=== PATIENT | female | born 1945 | race Caucasian/White ===

== ENCOUNTER 2016-07-10 12:22 | Inpatient (IN) | payer MEDICARE, OTHER ==
--- NOTE | 2016-07-10 12:41 | EDM.PDOC ---
ED HPI DIZZINESS - General Chief Complaint: Respiratory Problem Stated Complaint: DIZZY Time Seen by Provider: 07/10/16 12:41 Source of Information: Reports: Patient, Old records, RN, RN notes reviewed Exam Limitations: Reports: No limitations - History of Present Illness INITIAL COMMENTS - FREE TEXT/NARRATIVE: Arrives to ER from home by POV with c/o dizziness/lightheadedness that began yesterday but went away, and return today. Pt reports having a bad cough with occ. white or yellow sputum production, wheezing, and progressively worsening shortness of breath. She does not believe that she has had any fevers, but did feel hot and flushed once yesterday. Pt returned home last week from [place], and states she had a bad bronchitis the week before they drove home. Pt states she is a former smoker, and has both COPD and asthma. Timing/Duration: Reports: Week(s): (2-3), Constant, Getting worse Baseline Function: Reports: ambulatory Quality: Reports: lightheaded Severity: severe Improves With: Reports: sitting Worsens With: Reports: activity Context, Dizziness: Reports: recent illness - Related Data Allergies/ADRs: Allergies Allergy/AdvReac Type Severity Reaction Status Date / Time oxycodone Allergy Cannot Verified 07/10/16 14:05 Remember Home Meds: Home Meds FLUoxetine [PROzac] 40 mg PO DAILY 07/12/14 [History] Fluticasone/Salmeterol [Advair 250-50] 1 inh INH DAILY 07/12/14 [History] Tiotropium [Spiriva Handihaler] 1 inh INH DAILY 07/12/14 [History] atorvaSTATin [Lipitor] 40 mg PO DAILY 07/12/14 [History] traZODone 50 mg PO BEDTIME 07/12/14 [History] Aspirin 325 mg PO DAILY 02/16/16 [History] Metoprolol Tartrate [Metoprolol Tartrate] 25 mg PO DAILY 02/16/16 [History] Calcium Carbonate/Vitamin D3 [Caltrate 600 Plus D3 Tablet] 2 tab PO DAILY [History] Cilostazol 100 mg PO BID 07/10/16 [History] Valsartan/Hydrochlorothiazide [Valsartan-Hctz 320-25 mg Tab] 1 oz PO DAILY 07/10 [History] Past Medical History HEENT History: Reports: Impaired vision Cardiovascular History: Reports: CAD, High cholesterol, Hypertension, Stents Respiratory History: Reports: Asthma, COPD Psychiatric History: Reports: Depression - Past Surgical History HEENT Surgical History: Reports: Cataract surgery, Tonsillectomy Cardiovascular Surgical History: Reports: Coronary artery stent Female Surgical History: Reports: Tubal ligation Musculoskeletal Surgical History: Reports: Other (see below) Other Musculoskeletal Surgeries/Procedures:: Rotator cuff (R). Carpal tunnel Oncologic Surgical History: Reports: Lumpectomy Social & Family History - Tobacco Use Smoking Status *Q: Former Smoker Years of Tobacco use: 35 Used Tobacco, but Quit: Yes Month Tobacco Last Used: 1998 Second Hand Smoke Exposure: No - Caffeine Use Caffeine Use: Reports: Coffee - Alcohol Use Days Per Week of Alcohol Use: 0 - Recreational Drug Use Recreational Drug Use: No - Living Situation & Occupation Living situation: Reports: , with spouse Occupation: retired ED ROS GENERAL - Review of Systems Review Of Systems: ROS reveals no pertinent complaints other than HPI. ED EXAM, DIZZINESS - Physical Exam Exam: See Below Exam Limited By: No limitations General Appearance: alert, WD/WN, no apparent distress, anxious Eye Exam: bilateral eye: normal inspection Ears: normal external exam, hearing grossly normal Nose: normal inspection, normal mucosa, no blood Throat/Mouth: Normal inspection, Normal lips, Normal teeth, Normal gums, Normal oropharynx, Normal voice, No airway compromise Head Exam: atraumatic, normocephalic Neck: normal inspection, supple, non-tender, full range of motion Respiratory/Chest: no respiratory distress, no accessory muscle use, decreased breath sounds, rhonchi (Rt lower posterior lung field), wheezing Cardiovascular: normal peripheral pulses, regular rate, rhythm, no edema, no gallop, no JVD, no murmur, no rub GI/Abdominal: normal bowel sounds, soft, non tender, no organomegaly, no distention (Female) Exam: Deferred Rectal (Female) Exam: Deferred Neurological: alert, normal mood/affect, normal dorsiflexion, CN II-XII intact, normal plantar flexion, normal gait, no motor/sensory deficits, oriented x 3 Back Exam: normal inspection, full range of motion, NT Extremities: normal inspection, normal range of motion, non-tender, no pedal edema, normal capillary refill Psychiatric: normal affect, normal mood Skin Exam: Warm, Dry, Intact, Normal color, No rash EKG INTERPRETATION EKG Date: 07/10/16 Time: 12:44 Rhythm: other (SR) Rate (beats/min): 70 Cannon: normal P-wave: present QRS: other (early transition) ST-T: normal QT: normal Comparison: NA - no prior EKG Course - Vital Signs Last Recorded V/S: Last Vital Signs Temp 36.7 C 07/10/16 14:33 Pulse 73 07/10/16 14:33 Resp 20 07/10/16 14:33 BP 123/48 L 07/10/16 14:33 Pulse Ox 100 07/10/16 14:39 - Orders/Labs/Meds Orders: Active Orders 24 hr Category Date Time Status Patient Status [ADT] Routine ADT 07/10/16 14:39 Active Antiembolic Devices [RC] PER UNIT ROUTINE Care 07/10/16 14:41 Active Orthostatic Vital Signs [RC] ASDIRECTED Care 07/10/16 12:53 Active Oxygen Therapy [RC] PRN Care 07/10/16 14:39 Active RT Aerosol Therapy [RC] ASDIRECTED Care 07/10/16 12:53 Active RT Aerosol Therapy [RC] ASDIRECTED Care 07/10/16 14:36 Active RT Aerosol Therapy [RC] ASDIRECTED Care 07/10/16 14:38 Active Up With Assistance [RC] ASDIRECTED Care 07/10/16 14:39 Active VTE/DVT Education [RC] PER UNIT ROUTINE Care 07/10/16 14:39 Active Vital Signs [RC] Q4H Care 07/10/16 14:39 Active Regular Diet [DIET] Diet 07/10/16 Dinner Active BASIC METABOLIC PANEL,BMP [CHEM] AM Lab 07/11/16 05:15 Ordered CBC WITH AUTO DIFF [HEME] AM Lab 07/11/16 05:15 Ordered CULTURE BLOOD [BC] Stat Lab 07/10/16 13:00 Received CULTURE BLOOD [BC] Stat Lab 07/10/16 13:08 Received CULTURE SPUTUM + SMEAR [RM] Stat Lab 07/10/16 12:49 Results UA W/MICROSCOPIC [URIN] Stat Lab 07/10/16 12:50 Uncollected Acetaminophen [Tylenol] Med 07/10/16 14:39 Active 650 mg PO Q4H PRN Albuterol [Proventil Neb Soln] Med 07/10/16 14:37 Active 2.5 mg NEB Q4HRRT PRN Albuterol/Ipratropium [DuoNeb 3.0-0.5 MG/3 ML] Med 07/10/16 15:00 Active 3 ml NEB Q8HRRT Aspirin Med 07/11/16 09:00 Active 325 mg PO DAILY Budesonide [Pulmicort] Med 07/10/16 18:00 Active 0.5 mg NEB BIDRT Calcium Carbonate/Vitamin D3 [Calcium Carbonate/Vitamin Med 07/11/16 09:00 Active D 1250 MG-200 Unit] 2 tab PO DAILY Cilostazol [Cilostazol] Med 07/10/16 21:00 Pending 100 mg PO BID Docusate Sodium [Colace] Med 07/10/16 14:39 Active 100 mg PO BID PRN FLUoxetine [PROzac] Med 07/11/16 09:00 Active 40 mg PO DAILY Heparin Sodium Med 07/10/16 22:00 Active 5,000 units SUBCUT Q8HR Hydrochlorothiazide Med 07/11/16 09:00 Active 25 mg PO DAILY Ketorolac [Toradol] Med 07/10/16 14:39 Active 15 mg IVPUSH Q6H PRN Levofloxacin/Dextrose 5%-Water [Levaquin in D5W 250 MG/ Med 07/11/16 08:00 Ordered 50 ML] 250 mg IV Q24H Metoprolol Tartrate [Lopressor] Med 07/11/16 09:00 Active 12.5 mg PO DAILY Ondansetron [Zofran ODT] Med 07/10/16 14:39 Active 4 mg PO Q6H PRN Sodium Chloride 0.9% [Saline Flush] Med 07/10/16 12:50 Active 10 ml FLUSH ASDIRECTED PRN Tiotropium [Spiriva HandiHaler] Med 07/11/16 09:00 Active 18 mcg INH DAILY Valsartan [Diovan] Med 07/11/16 09:00 Active 320 mg PO DAILY atorvaSTATin [Lipitor] Med 07/11/16 09:00 Active 40 mg PO DAILY guaiFENesin [Robitussin] Med 07/10/16 14:38 Active 100 mg PO Q6H PRN methylPREDNISolone Sod Succ [Solu-MEDROL] Med 07/10/16 22:00 Active 40 mg IVPUSH Q8HR traZODone Med 07/10/16 21:00 Active 50 mg PO BEDTIME Antiembolic Hose [OM.PC] Per Unit Routine Oth 07/10/16 14:40 Ordered Blood Culture x2 Reflex Set [OM.PC] Stat Oth 07/10/16 12:50 Ordered Peripheral IV Insertion Adult [OM.PC] Stat Oth 07/10/16 12:50 Ordered Saline Lock Insert [OM.PC] Routine Oth 07/10/16 14:39 Ordered Resuscitation Status Routine Resus Stat 07/10/16 14:39 Ordered Medication Orders Acetaminophen (Tylenol) 650 mg PO Q4H PRN PRN Reason: Pain (Mild 1-3)/fever Albuterol (Proventil Neb Soln) 2.5 mg NEB Q4HRRT PRN PRN Reason: sob Albuterol/Ipratropium (Duoneb 3.0-0.5 Mg/3 Ml) 3 ml NEB Q8HRRT [facility] Aspirin (Aspirin) 325 mg PO DAILY [facility] Atorvastatin Calcium (Lipitor) 40 mg PO DAILY [facility] Budesonide (Pulmicort) 0.5 mg NEB BIDRT [facility] Calcium Carbonate (Calcium Carbonate/Vitamin D 1250 Mg-200 Unit) 2 tab PO DAILY [facility] Docusate Sodium (Colace) 100 mg PO BID PRN PRN Reason: Constipation Fluoxetine HCl (Prozac) 40 mg PO DAILY [facility] Guaifenesin (Robitussin) 100 mg PO Q6H PRN PRN Reason: Cough Heparin Sodium (Porcine) (Heparin Sodium) 5,000 units SUBCUT Q8HR [facility] Hydrochlorothiazide (Hydrochlorothiazide) 25 mg PO DAILY [facility] Ketorolac Tromethamine (Toradol) 15 mg IVPUSH Q6H PRN PRN Reason: Pain (moderate 4-6) Levofloxacin/Dextrose (Levaquin In D5w 250 Mg/50 Ml) 250 mg IV Q24H [facility] Methylprednisolone Sodium Succinate (Solu-Medrol) 40 mg IVPUSH Q8HR [facility] Metoprolol Tartrate (Lopressor) 12.5 mg PO DAILY [facility] Non-Formulary Medication (Cilostazol [Cilostazol]) 100 mg PO BID [facility] Ondansetron HCl (Zofran Odt) 4 mg PO Q6H PRN PRN Reason: nausea, able to take PO Sodium Chloride (Saline Flush) 10 ml FLUSH ASDIRECTED PRN PRN Reason: Keep Vein Open Last Admin: 07/10/16 13:21 Dose: 10 ml Tiotropium [place] (Spiriva Handihaler) 18 mcg INH DAILY [facility] Trazodone HCl (Trazodone) 50 mg PO BEDTIME [facility] Valsartan (Diovan) 320 mg PO DAILY [facility] Labs: Laboratory Tests 07/10/16 07/10/16 07/10/16 Range/Units 13:00 13:08 13:08 WBC 8.9 (5.0-10.0) 10^3/uL RBC 4.14 L (4.2-5.4) 10^6/uL Hgb 12.9 (12.0-16.0) g/dL Hct 38.2 (37.0-47.0) % MCV 92.3 (80-100) fL MCH 31.2 (27.0-34.0) pg MCHC 33.8 (33.0-35.0) g/dL Plt Count 234 (150-450) 10^3/uL Neut % (Auto) 69.9 (42.2-75.2) % Lymph % (Auto) 21.7 (20.5-50.1) % Graham % (Auto) 6.7 (2-8) % Eos % (Auto) 1.6 (1.0-3.0) % Baso % (Auto) 0.1 (0.0-1.0) % D-Dimer, Quantitative 662 H (0-400) ng/mL Sodium (135-145) mmol/L Potassium (3.6-5.0) mmol/L Chloride (101-111) mmol/L Carbon Dioxide (21.0-31.0) mmol/L Anion Gap BUN (7-18) mg/dL Creatinine (0.6-1.3) mg/dL Est Cr Clr Drug Dosing Estimated GFR (MDRD) BUN/Creatinine Ratio Glucose (74-105) mg/dL Lactic Acid 1.1 (0.5-2.2) mmol/L Calcium (8.4-10.2) mg/dl Total Bilirubin (0.2-1.0) mg/dL AST (10-42) IU/L ALT (10-60) IU/L Alkaline Phosphatase (42-121) IU/L Troponin I (0.00-0.08) ng/mL B-Natriuretic Peptide (0-100) pg/ml Total Protein (6.7-8.2) g/dl Albumin (3.2-5.5) g/dl Globulin Albumin/Globulin Ratio // Range/Units 13:08 WBC (5.0-10.0) 10^3/uL RBC (4.2-5.4) 10^6/uL Hgb (12.0-16.0) g/dL Hct (37.0-47.0) % MCV (80-100) fL MCH (27.0-34.0) pg MCHC (33.0-35.0) g/dL Plt Count (150-450) 10^3/uL Neut % (Auto) (42.2-75.2) % Lymph % (Auto) (20.5-50.1) % Graham % (Auto) (2-8) % Eos % (Auto) (1.0-3.0) % Baso % (Auto) (0.0-1.0) % D-Dimer, Quantitative (0-400) ng/mL Sodium 138 (135-145) mmol/L Potassium 3.8 (3.6-5.0) mmol/L Chloride 101 (101-111) mmol/L Carbon Dioxide 26.0 (21.0-31.0) mmol/L Anion Gap 14.8 BUN 34 H (7-18) mg/dL Creatinine 1.5 H (0.6-1.3) mg/dL Est Cr Clr Drug Dosing TNP Estimated GFR (MDRD) 34 BUN/Creatinine Ratio 22.66 Glucose 117 H (74-105) mg/dL Lactic Acid (0.5-2.2) mmol/L Calcium 9.6 (8.4-10.2) mg/dl Total Bilirubin 0.8 (0.2-1.0) mg/dL AST 21 (10-42) IU/L ALT 25 (10-60) IU/L Alkaline Phosphatase 53 (42-121) IU/L Troponin I 0.00 (0.00-0.08) ng/mL B-Natriuretic Peptide 17 (0-100) pg/ml Total Protein 7.1 (6.7-8.2) g/dl Albumin 4.0 (3.2-5.5) g/dl Globulin 3.1 Albumin/Globulin Ratio 1.29 Meds: Medications Generic Name Dose Route Start Last Admin Trade Name Freq PRN Reason Stop Dose Admin Acetaminophen 650 mg 07/10/16 14:39 Tylenol PO Q4H PRN Pain (Mild 1-3)/fever Albuterol 2.5 mg 07/10/16 14:37 Proventil Neb Soln NEB Q4HRRT PRN sob Albuterol/Ipratropium 3 ml 07/10/16 15:00 Duoneb 3.0-0.5 Mg/3 Ml NEB Q8HRRT [facility] Aspirin 325 mg 07/11/16 09:00 Aspirin PO DAILY [facility] Atorvastatin Calcium 40 mg 07/11/16 09:00 Lipitor PO DAILY [facility] Budesonide 0.5 mg 07/10/16 18:00 Pulmicort NEB BIDRT [facility] Calcium Carbonate 2 tab 07/11/16 09:00 Calcium Carbonate/Vitamin D 1250 Mg-200 Unit PO DAILY [facility] Docusate Sodium 100 mg 07/10/16 14:39 Colace PO BID PRN Constipation Fluoxetine HCl 40 mg 07/11/16 09:00 Prozac PO DAILY [facility] Guaifenesin 100 mg 07/10/16 14:38 Robitussin PO Q6H PRN Cough Heparin Sodium (Porcine) 5,000 units 07/10/16 22:00 Heparin Sodium SUBCUT Q8HR [facility] Hydrochlorothiazide 25 mg 07/11/16 09:00 Hydrochlorothiazide PO DAILY [facility] Ketorolac Tromethamine 15 mg 07/10/16 14:39 Toradol IVPUSH Q6H PRN Pain (moderate 4-6) Levofloxacin/Dextrose 250 mg 07/11/16 08:00 Levaquin In D5w 250 Mg/50 Ml IV Q24H [facility] Methylprednisolone Sodium Succinate 40 mg 07/10/16 22:00 Solu-Medrol IVPUSH Q8HR [facility] Metoprolol Tartrate 12.5 mg 07/11/16 09:00 Lopressor PO DAILY [facility] Non-Formulary Medication 100 mg 07/10/16 21:00 Cilostazol [Cilostazol] PO BID [facility] Ondansetron HCl 4 mg 07/10/16 14:39 Zofran Odt PO Q6H PRN nausea, able to take PO Sodium Chloride 10 ml 07/10/16 12:50 07/10/16 13:21 Saline Flush FLUSH 10 ml ASDIRECTED PRN Administration Keep Vein Open Tiotropium [place] 18 mcg 07/11/16 09:00 Spiriva Handihaler INH DAILY [facility] Trazodone HCl 50 mg 07/10/16 21:00 Trazodone PO BEDTIME [facility] Valsartan 320 mg 07/11/16 09:00 Diovan PO DAILY [facility] Discontinued Medications Generic Name Dose Route Start Last Admin Trade Name Freq PRN Reason Stop Dose Admin Albuterol/Ipratropium 3 ml 07/10/16 12:53 07/10/16 13:14 Duoneb 3.0-0.5 Mg/3 Ml NEB 07/10/16 12:54 3 ml ONETIME ONE Administration Sodium Chloride 1,000 mls @ 999 mls/hr 07/10/16 12:53 07/10/16 13:21 Normal Saline IV 07/10/16 13:53 999 mls/hr .BOLUS ONE Administration Levofloxacin/Dextrose 500 mg/ 100 mls @ 100 mls/hr 07/10/16 13:53 07/10/16 14 :18 Premix IV 07/10/16 14:52 100 mls/hr ONETIME ONE Administration Levofloxacin/Dextrose 500 mg/ 100 mls @ 100 mls/hr 07/11/16 08:00 Premix IV Q24H [facility] Ketorolac Tromethamine 30 mg 07/10/16 13:39 07/10/16 13:48 Toradol IVPUSH 07/10/16 13:40 30 mg ONETIME ONE Administration Lorazepam 0.5 mg 07/10/16 13:39 07/10/16 13:47 Ativan IVPUSH 07/10/16 13:40 0.5 mg ONETIME ONE Administration Methylprednisolone Sodium Succinate 125 mg 07/10/16 12:53 07/10/16 13:21 Solu-Medrol IVPUSH 07/10/16 12:54 125 mg ONETIME ONE Administration - Radiology Interpretation Free Text/Narrative:: CXR: Rt medial base infiltrate; see Rad. report. - Re-Assessments/Exams Free Text/Narrative Re-Assessment/Exam: 07/10/16 14:06 I explained the exam findings, results of all diagnostic tests, working diagnosis, and any potential or additionally considered diagnoses, treatment/ disposition plan, self/home care instructions, rational for the diagnosis/ treatment plan/disposition plan, anticipated course of illness, and follow up instructions to the pt and/or pts family or guardian. The pt and/or pts family or guardian acknowledges understanding of the above explanation(s), and of the signs and symptoms which should prompt the return of the pt to the ER should those or any other concerning symptoms develop. Departure - Departure Time of Disposition: 14:06 (admit to Dr. Head) Disposition: Admitted As Inpatient 64 Condition: serious Clinical Impression: Acute exacerbation of chronic obstructive pulmonary disease (COPD), Anxiety, Lightheadedness, Generalized headache Pneumonia Qualifiers: Pneumonia type: due to unspecified organism Laterality: right Lung location: lower lobe of lung Qualified Code(s): J18.1 - Lobar pneumonia, unspecified organism Forms: ED Department Discharge - My Orders Last 24 Hours: My Active Orders 07/10/16 12:49 CULTURE SPUTUM + SMEAR [RM] Stat 07/10/16 12:50 UA W/MICROSCOPIC [URIN] Stat Sodium Chloride 0.9% [Saline Flush] 10 ml FLUSH ASDIRECTED PRN Blood Culture x2 Reflex Set [OM.PC] Stat Peripheral IV Insertion Adult [OM.PC] Stat 07/10/16 12:53 Orthostatic Vital Signs [RC] ASDIRECTED RT Aerosol Therapy [RC] ASDIRECTED 07/10/16 13:00 CULTURE BLOOD [BC] Stat 07/10/16 13:08 CULTURE BLOOD [BC] Stat - Assessment/Plan Last 24 Hours: My Active Orders 07/10/16 12:49 CULTURE SPUTUM + SMEAR [RM] Stat 07/10/16 12:50 UA W/MICROSCOPIC [URIN] Stat Sodium Chloride 0.9% [Saline Flush] 10 ml FLUSH ASDIRECTED PRN Blood Culture x2 Reflex Set [OM.PC] Stat Peripheral IV Insertion Adult [OM.PC] Stat 07/10/16 12:53 Orthostatic Vital Signs [RC] ASDIRECTED RT Aerosol Therapy [RC] ASDIRECTED 07/10/16 13:00 CULTURE BLOOD [BC] Stat 07/10/16 13:08 CULTURE BLOOD [BC] Stat
[2016-07-10] MEDS ORDERED: Sodium Chloride 0.9% 1,000 ML IV ONE (12:53)
[2016-07-10] MEDS ORDERED: Albuterol/Ipratropium 3.0-0.5 MG/3 ML Neb Soln NEB ONE (12:53)
[2016-07-10] MEDS ORDERED: methylPREDNISolone Sodium Succinate 125 MG/2 ML SDV IVPUSH ONE (12:53)
[2016-07-10] MEDS: Sodium Chloride 0.9% 10 ML Syringe FLUSH PRN (13:21)
[2016-07-10 13:38] LABS: CHLORIDE,CL 101 mmol/L (101-111); SODIUM,NA 138 mmol/L (135-145)
[2016-07-10] MEDS ORDERED: Ketorolac 30 MG/ML SDV IVPUSH ONE (13:39)
[2016-07-10] MEDS ORDERED: LORazepam 2 MG/ML Syringe IVPUSH ONE (13:39)
[2016-07-10] MEDS: Levofloxacin/Dextrose 5%-Water 500 MG in Premix Bag 1 BAG IV ONE ×2 (14:18→15:08)
[2016-07-10] MEDS ORDERED: Albuterol 0.083% 2.5 MG/3 ML Neb Soln NEB PRN (14:37)
[2016-07-10] MEDS ORDERED: guaiFENesin 100 MG/5 ML Soln 5 ML UD Cup PO PRN (14:38)
[2016-07-10] MEDS ORDERED: Docusate Sodium 100 MG Cap PO PRN (14:39)
[2016-07-10] MEDS ORDERED: Ketorolac 30 MG/ML SDV IVPUSH PRN (14:39)
[2016-07-10] MEDS ORDERED: Ondansetron 4 MG Tab.DIS PO PRN (14:39)
--- NOTE | 2016-07-10 15:09 | PCM.HP ---
H&P History of Present Illness - General Date of Service: 07/10/16 Admit Problem/Dx: Admission Diagnosis/Problem Admission Diagnosis/Problem Cough - History of Present Illness Initial Comments - Free Text/Narative: the patient is a 71-year-old lady with a history of coronary artery disease, COPD, hypertension The patient developed a cough about one week ago SHe was given prednisone for COPD exacerbation Today she felt increasing shortness of breath, cough with green sputum No apparent sick contact, no associated fever Today he felt somewhat dizzy after working in the garden She noted to be wheezy, Onset of Symptoms: Reports: gradual Head Pain Score (Numeric/FACES): 2 - Related Data Allergies/Adverse Reactions: Allergies Allergy/AdvReac Type Severity Reaction Status Date / Time oxycodone Allergy Cannot Verified 07/10/16 14:05 Remember Home Medications: Home Meds FLUoxetine [PROzac] 40 mg PO DAILY 07/12/14 [History] Fluticasone/Salmeterol [Advair 250-50] 1 inh INH DAILY 07/12/14 [History] Tiotropium [Spiriva Handihaler] 1 inh INH DAILY 07/12/14 [History] atorvaSTATin [Lipitor] 40 mg PO DAILY 07/12/14 [History] traZODone 50 mg PO BEDTIME 07/12/14 [History] Aspirin 325 mg PO DAILY 02/16/16 [History] Metoprolol Tartrate [Metoprolol Tartrate] 12.5 mg PO DAILY 02/16/16 [History] Calcium Carbonate/Vitamin D3 [Caltrate 600 Plus D3 Tablet] 2 tab PO DAILY [History] Cilostazol 100 mg PO BID 07/10/16 [History] Valsartan/Hydrochlorothiazide [Valsartan-Hctz 320-25 mg Tab] 1 oz PO DAILY 07/10 [History] Past Medical History HEENT History: Reports: Cataract, Impaired vision Cardiovascular History: Reports: CAD, High cholesterol, Hypertension, Stents Respiratory History: Reports: COPD, Pneumonia, recurrent Psychiatric History: Reports: Anxiety, Depression - Past Surgical History HEENT Surgical History: Reports: Cataract surgery, Tonsillectomy Cardiovascular Surgical History: Reports: Coronary artery stent Female Surgical History: Reports: Tubal ligation Musculoskeletal Surgical History: Reports: Other (see below) Other Musculoskeletal Surgeries/Procedures:: Rotator cuff (R). Carpal tunnel Oncologic Surgical History: Reports: Biopsy of breast, Lumpectomy Social & Family History - Tobacco Use Smoking Status *Q: Former Smoker Years of Tobacco use: 35 Packs/Tins Daily: 1.5 Used Tobacco, but Quit: Yes Month Tobacco Last Used: 12 Second Hand Smoke Exposure: No - Caffeine Use Caffeine Use: Reports: Coffee - Alcohol Use Days Per Week of Alcohol Use: 0 - Recreational Drug Use Recreational Drug Use: No - Living Situation & Occupation Living situation: Reports: , with spouse Occupation: retired H&P Review of Systems - Review of Systems: Review Of Systems: See Below General: Reports: chills, weakness. Denies: fever Pulmonary: Reports: Shortness of Breath, Wheezing Cardiovascular: Denies: chest pain Gastrointestinal: Denies: Abdominal pain Genitourinary: Denies: dysuria Psychiatric: Denies: confusion Neurological: Reports: Dizziness Exam - Exam Exam: See Below - Vital Signs Vital Signs: Last Vital Signs Temp 36.7 C 07/10/16 14:33 Pulse 73 07/10/16 14:33 Resp 20 07/10/16 14:33 BP 123/48 L 07/10/16 14:33 Pulse Ox 100 07/10/16 14:39 Weight: 89.993 kg - Exam Quality Assessment: supplemental oxygen General: alert, oriented HEENT: Conjunctiva clear, EOMI Neck: supple, trachea midline Lungs: Normal respiratory effort, Wheezing Cardiovascular: regular rate, regular rhythm Abdomen: normal bowel sounds, soft Extremities: normal inspection. No: edema Skin: warm, dry, intact Neuro Extensive - Mental Status: alert, oriented x3, normal mood/affect, normal cognition Psychiatric: alert, normal affect, normal mood - Patient Data Result Diagrams: 07/10/16 13:08 07/10/16 13:08 Imaging Impressions last 24 hrs: EKG per my reading shows right basilar linear opacity, competible with bronchitis or pneumonia *Q Meaningful Use (ADM) - VTE *Q VTE Criteria *Q: - Stroke *Q Stroke Criteria *Q: - AMI *Q AMI Criteria *Q: - Problem List (1) Acute exacerbation of chronic obstructive pulmonary disease (COPD) SNOMED Code(s): 201411295 ICD Code: J44.1 - CHRONIC OBSTRUCTIVE PULMONARY DISEASE W (ACUTE) EXACERBATION Status: Acute Current Visit: Yes (2) Anxiety SNOMED Code(s): 28977622 ICD Code: F41.9 - ANXIETY DISORDER, UNSPECIFIED Status: Acute Current Visit: Yes (3) Pneumonia SNOMED Code(s): 044186858 ICD Code: J18.9 - PNEUMONIA, UNSPECIFIED ORGANISM Status: Acute Current Visit: Yes Qualifiers: Pneumonia type: due to unspecified organism Laterality: right Lung location: lower lobe of lung Qualified Code(s): J18.1 - Lobar pneumonia, unspecified organism Problem List Initiated/Reviewed/Updated: Yes Orders Last 24hrs: Active Orders 24 hr Category Date Time Status Patient Status [ADT] Routine ADT 07/10/16 14:39 Ordered Antiembolic Devices [RC] PER UNIT ROUTINE Care 07/10/16 14:41 Ordered Oxygen Therapy [RC] PRN Care 07/10/16 14:39 Ordered RT Aerosol Therapy [RC] ASDIRECTED Care 07/10/16 14:36 Ordered RT Aerosol Therapy [RC] ASDIRECTED Care 07/10/16 14:38 Ordered Up With Assistance [RC] ASDIRECTED Care 07/10/16 14:39 Ordered VTE/DVT Education [RC] PER UNIT ROUTINE Care 07/10/16 14:39 Ordered Vital Signs [RC] Q4H Care 07/10/16 14:39 Ordered Regular Diet [DIET] Diet 07/10/16 Dinner Ordered BASIC METABOLIC PANEL,BMP [CHEM] AM Lab 07/11/16 05:15 Ordered CBC WITH AUTO DIFF [HEME] AM Lab 07/11/16 05:15 Ordered Acetaminophen [Tylenol] Med 07/10/16 14:39 Ordered 650 mg PO Q4H PRN Albuterol [Proventil Neb Soln] Med 07/10/16 14:37 Ordered 2.5 mg NEB Q4HRRT PRN Albuterol/Ipratropium [DuoNeb 3.0-0.5 MG/3 ML] Med 07/10/16 15:00 Ordered 3 ml NEB Q8HRRT Aspirin Med 07/11/16 09:00 Ordered 325 mg PO DAILY Budesonide [Pulmicort] Med 07/10/16 18:00 Ordered 0.5 mg NEB BIDRT Calcium Carbonate/Vitamin D3 [Caltrate 600 Plus D3 Med 07/11/16 09:00 Ordered Tablet] 2 tab PO DAILY Cilostazol [Cilostazol] Med 07/10/16 21:00 Ordered 100 mg PO BID Docusate Sodium [Colace] Med 07/10/16 14:39 Ordered 100 mg PO BID PRN FLUoxetine [PROzac] Med 07/11/16 09:00 Ordered 40 mg PO DAILY Heparin Sodium Med 07/10/16 22:00 Ordered 5,000 units SUBCUT Q8HR Hydrochlorothiazide Med 07/11/16 09:00 Active 25 mg PO DAILY Ketorolac [Toradol] Med 07/10/16 14:39 Ordered 15 mg IVPUSH Q6H PRN Levofloxacin/Dextrose 5%-Water [Levaquin in D5W 250 MG/ Med 07/11/16 08:00 Ordered 50 ML] 250 mg IV Q24H Metoprolol Tartrate [Lopressor] Med 07/11/16 09:00 Ordered 12.5 mg PO DAILY Ondansetron [Zofran ODT] Med 07/10/16 14:39 Ordered 4 mg PO Q6H PRN Tiotropium [Spiriva HandiHaler] Med 07/11/16 09:00 Ordered 1 inh INH DAILY Valsartan/Hydrochlorothiazide [Valsartan-Hctz 320-25 mg Med 07/11/16 09:00 Ordered Tab] 1 oz PO DAILY atorvaSTATin [Lipitor] Med 07/11/16 09:00 Ordered 40 mg PO DAILY guaiFENesin [Robitussin] Med 07/10/16 14:38 Ordered 100 mg PO Q6H PRN methylPREDNISolone Sod Succ [Solu-MEDROL] Med 07/10/16 18:00 Ordered 40 mg IVPUSH Q8H traZODone Med 07/10/16 21:00 Ordered 50 mg PO BEDTIME Antiembolic Hose [OM.PC] Per Unit Routine Oth 07/10/16 14:40 Ordered Saline Lock Insert [OM.PC] Routine Oth 07/10/16 14:39 Ordered Resuscitation Status Routine Resus Stat 07/10/16 14:39 Ordered Medication Orders Acetaminophen (Tylenol) 650 mg PO Q4H PRN PRN Reason: Pain (Mild 1-3)/fever Albuterol (Proventil Neb Soln) 2.5 mg NEB Q4HRRT PRN PRN Reason: sob Albuterol/Ipratropium (Duoneb 3.0-0.5 Mg/3 Ml) 3 ml NEB Q8HRRT [facility] Aspirin (Aspirin) 325 mg PO DAILY [facility] Atorvastatin Calcium (Lipitor) 40 mg PO DAILY [facility] Budesonide (Pulmicort) 0.5 mg NEB BIDRT [facility] Calcium Carbonate (Calcium Carbonate/Vitamin D 1250 Mg-200 Unit) 2 tab PO DAILY [facility] Docusate Sodium (Colace) 100 mg PO BID PRN PRN Reason: Constipation Fluoxetine HCl (Prozac) 40 mg PO DAILY [facility] Guaifenesin (Robitussin) 100 mg PO Q6H PRN PRN Reason: Cough Heparin Sodium (Porcine) (Heparin Sodium) 5,000 units SUBCUT Q8HR [facility] Hydrochlorothiazide (Hydrochlorothiazide) 25 mg PO DAILY [facility] Ketorolac Tromethamine (Toradol) 15 mg IVPUSH Q6H PRN PRN Reason: Pain (moderate 4-6) Levofloxacin/Dextrose (Levaquin In D5w 250 Mg/50 Ml) 250 mg IV Q24H [facility] Methylprednisolone Sodium Succinate (Solu-Medrol) 40 mg IVPUSH Q8HR [facility] Metoprolol Tartrate (Lopressor) 12.5 mg PO DAILY [facility] Non-Formulary Medication (Cilostazol [Cilostazol]) 100 mg PO BID [facility] Ondansetron HCl (Zofran Odt) 4 mg PO Q6H PRN PRN Reason: nausea, able to take PO Sodium Chloride (Saline Flush) 10 ml FLUSH ASDIRECTED PRN PRN Reason: Keep Vein Open Last Admin: 07/10/16 13:21 Dose: 10 ml Tiotropium [place] (Spiriva Handihaler) 18 mcg INH DAILY [facility] Trazodone HCl (Trazodone) 50 mg PO BEDTIME [facility] Valsartan (Diovan) 320 mg PO DAILY [facility] Assessment/Plan Comment:: Acute hypoxemic respiratory failure secondary to an acute COPD exacerbation We'll supplement oxygen as needed Acute COPD exacerbation Home medications included Pulmicort and DuoNeb Hold Advair Continue Pulmicort and scheduled DuoNeb and p.r.n. albuterol Continue Spiriva Start IV steroids Use as needed Robitussin Acute community acquired pneumonia Obtain sputum culture, blood culture The patient has been on outpatient oral Augmentin without improvement Will start on IV levofloxacin Hypertension Treat with Diovan and hydrochlorothiazide Follow blood pressure Depression, anxiety Treat with Prozac DVT prophylaxis will be with subcutaneous heparin
[2016-07-10] MEDS: Albuterol/Ipratropium 3.0-0.5 MG/3 ML Neb Soln NEB SCH ×2 (15:25→23:00)
[2016-07-10] MEDS: Budesonide 0.5 MG/2 ML Neb Susp NEB SCH (17:47)
[2016-07-10] MEDS: Acetaminophen 325 MG Tab PO PRN (20:02)
[2016-07-10] MEDS: CILOSTAZOL 100 MG PO SCH (20:53)
[2016-07-10] MEDS ORDERED: traZODone 50 MG Tab PO SCH (21:00)
[2016-07-10] MEDS ORDERED: Metoprolol Tartrate 25 MG Tab PO SCH (21:45)
[2016-07-10] MEDS ORDERED: atorvaSTATin 20 MG Tab PO SCH (21:45)
[2016-07-10] MEDS: methylPREDNISolone Sodium Succinate 40 MG/1 ML SDV IVPUSH SCH (22:50)
[2016-07-10] MEDS: Heparin Sodium 5,000 Units/ML Vial SUBCUT SCH (22:51)
[2016-07-11] MEDS: Heparin Sodium 5,000 Units/ML Vial SUBCUT SCH (05:33)
[2016-07-11] MEDS: methylPREDNISolone Sodium Succinate 40 MG/1 ML SDV IVPUSH SCH (05:35)
[2016-07-11] MEDS: Sodium Chloride 0.9% 10 ML Syringe FLUSH PRN ×2 (05:35→07:48)
[2016-07-11] MEDS: Budesonide 0.5 MG/2 ML Neb Susp NEB SCH (07:20)
[2016-07-11] MEDS: Albuterol/Ipratropium 3.0-0.5 MG/3 ML Neb Soln NEB SCH (07:20)
[2016-07-11 07:32] VITALS: BP 146/63
[2016-07-11] MEDS ORDERED: Levofloxacin/Dextrose 5%-Water 250 MG in Premix Bag 1 BAG IV SCH (08:00)
[2016-07-11] MEDS ORDERED: Levofloxacin/Dextrose 5%-Water 500 MG in Premix Bag 1 BAG IV SCH (08:00)
[2016-07-11] MEDS ORDERED: Levofloxacin/Dextrose 5%-Water 250 MG/50 ML Premix Bag IV SCH (08:00)
[2016-07-11] MEDS: Acetaminophen 325 MG Tab PO PRN (08:00)
[2016-07-11] MEDS ORDERED: Calcium Carbonate/Vitamin D3 1250 MG-200 Unit Tab PO SCH (09:00)
[2016-07-11] MEDS ORDERED: Aspirin 325 MG Tab PO SCH (09:00)
[2016-07-11] MEDS ORDERED: Hydrochlorothiazide 25 MG Tab PO SCH (09:00)
[2016-07-11] MEDS ORDERED: FLUoxetine 10 MG Cap PO SCH (09:00)
[2016-07-11] MEDS ORDERED: Tiotropium Inhaler 18 MCG Inhalation Powder Cap Kit of 5 INH SCH (09:00)
[2016-07-11] MEDS ORDERED: Potassium Chloride 10 MEQ Tab.ER PO ONE (09:15)
--- NOTE | 2016-07-11 09:28 | PCM.DCSUM1 ---
Discharge Summary - Hospital Course Free Text/Narrative:: 71-year-old lady presented with cough, shortness of breath On examination was noted to have wheezing, and hypoxemia On chest x-ray there was a pneumonia Acute hypoxemic respiratory failure secondary to an acute COPD exacerbation resolved, off oxygen Acute COPD exacerbation Home medications included Advair and DuoNeb treated with Pulmicort and scheduled DuoNeb and p.r.n. albuterol, spiriva, steroids significantly improved, she is feeling well, minimal effort or wheezing She would like to be discharged Will continue her inhaled DuoNeb at home Treat with antibiotics and tapering steroid dose Acute community acquired pneumonia pending sputum culture, blood culture The patient has been on outpatient oral Augmentin without improvement Started on IV levofloxacin plan continue p.o. course at home Hypertension Treated with Diovan and hydrochlorothiazide Depression, anxiety Treat with Prozac - Discharge Data Discharge Date: 07/11/16 Discharge Disposition: Home, Self-Care 01 Condition: Good - Discharge Diagnosis/Problem(s) (1) Acute exacerbation of chronic obstructive pulmonary disease (COPD) SNOMED Code(s): 209613625 ICD Code: J44.1 - CHRONIC OBSTRUCTIVE PULMONARY DISEASE W (ACUTE) EXACERBATION Status: Acute Current Visit: Yes (2) Anxiety SNOMED Code(s): 00974772 ICD Code: F41.9 - ANXIETY DISORDER, UNSPECIFIED Status: Acute Current Visit: Yes (3) Pneumonia SNOMED Code(s): 229342384 ICD Code: J18.9 - PNEUMONIA, UNSPECIFIED ORGANISM Status: Acute Current Visit: Yes Qualifiers: Pneumonia type: due to unspecified organism Laterality: right Lung location: lower lobe of lung Qualified Code(s): J18.1 - Lobar pneumonia, unspecified organism - Patient Instructions Diet: Heart Healthy Diet Activity: As Tolerated - Discharge Plan Prescriptions/Med Rec: Albuterol/Ipratropium [DuoNeb 3.0-0.5 MG/3 ML] 3 ml NEB Q8HRRT PRN #15 neb PRN Reason: sob Levofloxacin 500 mg PO DAILY #10 tablet Prednisone [IJD: Prednisone] 10 mg PO DAILY #32 tab Home Medications: Home Meds FLUoxetine [PROzac] 40 mg PO DAILY 07/12/14 [History] Fluticasone/Salmeterol [Advair 250-50] 1 inh INH DAILY 07/12/14 [History] Tiotropium [Spiriva Handihaler] 1 inh INH DAILY 07/12/14 [History] atorvaSTATin [Lipitor] 40 mg PO BEDTIME 07/12/14 [History] traZODone 50 mg PO BEDTIME 07/12/14 [History] Aspirin 325 mg PO BEDTIME 02/16/16 [History] Metoprolol Tartrate 12.5 mg PO BEDTIME 02/16/16 [History] Acetaminophen [Acetaminophen Extra Strength] 500 mg PO Q6HR PRN 07/10/16 [ History] Albuterol [Proventil HFA] 1 puff INH Q2H PRN 07/10/16 [History] Calcium Carbonate/Vitamin D3 [Caltrate 600 Plus D3 Tablet] 2 tab PO DAILY [History] Cilostazol 100 mg PO BID 07/10/16 [History] Multivitamin with Minerals [Multiple Vitamin] 1 tab PO DAILY 07/10/16 [History] Valsartan/Hydrochlorothiazide [Valsartan-Hctz 320-25 mg Tab] 1 tab PO DAILY 07/22 [History] Albuterol/Ipratropium [DuoNeb 3.0-0.5 MG/3 ML] 3 ml NEB Q8HRRT PRN #15 neb 07/11 [Rx] Levofloxacin 500 mg PO DAILY #10 tablet 07/11/16 [Rx] Prednisone [IJD: Prednisone] 10 mg PO DAILY #32 tab 07/11/16 [Rx] Patient Handouts: Chronic Obstructive Pulmonary Disease Exacerbation, Easy-to- Read, Shortness of Breath - Discharge Summary/Plan Comment DC Time >30 min.: No - General Info Date of Service: 07/11/16 Admission Dx/Problem (Free Text: Admission Diagnosis/Problem Admission Diagnosis/Problem Cough - Review of Systems General: Denies: Fever Pulmonary: Reports: shortness of breath (much improved) Cardiovascular: Denies: Chest Pain Gastrointestinal: Denies: Abdominal pain Neurological: Denies: Confusion - Patient Data Vitals - Most Recent: Last Vital Signs Temp 37.2 C 07/11/16 07:00 Pulse 70 07/11/16 07:00 Resp 20 07/11/16 07:00 BP 146/63 H 07/11/16 08:02 Pulse Ox 95 07/11/16 07:21 Orthostatic Blood Pressure [ 128/64 Standing] Orthostatic Blood Pressure [ 143/59 Sitting] Weight - Most Recent: 89.993 kg I&O - Last 24 hours: Intake & Output 07/10/16 07/11/16 07/11/16 22:59 06:59 14:59 Intake Total 1546 75 100 Output Total 450 800 Balance 1096 -725 100 Lab Results - Last 24 hrs: Laboratory Results - last 24 hr 07/10/16 07/11/16 07/11/16 Range/Units 16:30 06:00 06:00 WBC 7.8 (5.0-10.0) 10^3/uL RBC 3.71 L (4.2-5.4) 10^6/uL Hgb 11.5 L (12.0-16.0) g/dL Hct 34.1 L (37.0-47.0) % MCV 91.9 (80-100) fL MCH 31.0 (27.0-34.0) pg MCHC 33.7 (33.0-35.0) g/dL Plt Count 215 (150-450) 10^3/uL Neut % (Auto) 89.6 H (42.2-75.2) % Lymph % (Auto) 9.6 L (20.5-50.1) % [place] % (Auto) 0.8 L (2-8) % Eos % (Auto) 0.0 L (1.0-3.0) % Baso % (Auto) 0.0 (0.0-1.0) % Sodium 137 (135-145) mmol/L Potassium 3.4 L (3.6-5.0) mmol/L Chloride 104 (101-111) mmol/L Carbon Dioxide 23.0 (21.0-31.0) mmol/L Anion Gap 13.4 BUN 30 H (7-18) mg/dL Creatinine 1.1 (0.6-1.3) mg/dL Est Cr Clr Drug Dosing 36.02 mL/min Estimated GFR (MDRD) 49 Glucose 242 H (74-105) mg/dL Calcium 8.8 (8.4-10.2) mg/dl Urine Color Yellow (YELLOW) Urine Appearance Clear (CLEAR) Urine pH 7.0 (5.0-9.0) Ur Specific [place] 1.015 (1.005-1.030) Urine Protein Negative (NEGATIVE) Urine Glucose (UA) Negative (NEGATIVE) Urine Ketones 40 H (NEGATIVE) Urine Occult Blood Negative (NEGATIVE) Urine Nitrite Negative (NEGATIVE) Urine Bilirubin Negative (NEGATIVE) Urine Urobilinogen 0.2 (0.2-1.0) mg/dL Ur Leukocyte Esterase Negative (NEGATIVE) Urine RBC 0-5 /HPF Urine WBC 0-5 (0-5/HPF) /HPF Ur Epithelial Cells Few /HPF Urine Bacteria Few (0-FEW/HPF) /HPF Med Orders - Current: Current Medications Acetaminophen (Tylenol) 650 mg PO Q4H PRN PRN Reason: Pain (Mild 1-3)/fever Last Admin: 07/11/16 08:00 Dose: 650 mg Albuterol (Proventil Neb Soln) 2.5 mg NEB Q4HRRT PRN PRN Reason: sob Albuterol/Ipratropium (Duoneb 3.0-0.5 Mg/3 Ml) 3 ml NEB Q8HRRT [facility] Last Admin: 07/11/16 07:20 Dose: 3 ml Aspirin (Aspirin) 325 mg PO DAILY [facility] Last Admin: 07/11/16 08:01 Dose: 325 mg Atorvastatin Calcium (Lipitor) 40 mg PO BEDTIME [facility] Last Admin: 07/10/16 22:48 Dose: 40 mg Budesonide (Pulmicort) 0.5 mg NEB BIDRT [facility] Last Admin: 07/11/16 07:20 Dose: 0.5 mg Calcium Carbonate (Calcium Carbonate/Vitamin D 1250 Mg-200 Unit) 2 tab PO DAILY [facility] Last Admin: 07/11/16 08:03 Dose: 2 tab Docusate Sodium (Colace) 100 mg PO BID PRN PRN Reason: Constipation Fluoxetine HCl (Prozac) 40 mg PO DAILY [facility] Last Admin: 07/11/16 08:04 Dose: 40 mg Guaifenesin (Robitussin) 100 mg PO Q6H PRN PRN Reason: Cough Heparin Sodium (Porcine) (Heparin Sodium) 5,000 units SUBCUT Q8HR [facility] Last Admin: 07/11/16 05:33 Dose: 5,000 units Hydrochlorothiazide (Hydrochlorothiazide) 25 mg PO DAILY [facility] Last Admin: 07/11/16 08:01 Dose: 25 mg Levofloxacin/Dextrose 250 mg/ (Premix) 50 mls @ 50 mls/hr IV Q24H [facility] Last Infusion: 07/11/16 09:02 Dose: Infused Ketorolac Tromethamine (Toradol) 15 mg IVPUSH Q6H PRN PRN Reason: Pain (moderate 4-6) Methylprednisolone Sodium Succinate (Solu-Medrol) 40 mg IVPUSH Q8HR [facility] Last Admin: 07/11/16 05:35 Dose: 40 mg Metoprolol Tartrate (Lopressor) 12.5 mg PO BEDTIME [facility] Last Admin: 07/10/16 22:47 Dose: 12.5 mg Ondansetron HCl (Zofran Odt) 4 mg PO Q6H PRN PRN Reason: nausea, able to take PO Cilostazol [ Cilostazol] 100 Mg Own Med 0 each PO BID [facility] Last Admin: 07/10/16 20:53 Dose: 1 each Sodium Chloride (Saline Flush) 10 ml FLUSH ASDIRECTED PRN PRN Reason: Keep Vein Open Last Admin: 07/11/16 07:48 Dose: 10 ml Tiotropium [place] (Spiriva Handihaler) 18 mcg INH DAILY [facility] Last Admin: 07/11/16 08:04 Dose: 18 mcg Trazodone HCl (Trazodone) 50 mg PO BEDTIME [facility] Last Admin: 07/10/16 20:53 Dose: 50 mg Valsartan (Diovan) 320 mg PO DAILY [facility] Last Admin: 07/11/16 08:02 Dose: 320 mg Discontinued Medications Albuterol/Ipratropium (Duoneb 3.0-0.5 Mg/3 Ml) 3 ml NEB ONETIME ONE Stop: 07/10/16 12:54 Last Admin: 07/10/16 13:14 Dose: 3 ml Sodium Chloride (Normal Saline) 1,000 mls @ 999 mls/hr IV .BOLUS ONE Stop: 07/10/16 13:53 Last Admin: 07/10/16 13:21 Dose: 999 mls/hr Levofloxacin/Dextrose 500 mg/ (Premix) 100 mls @ 100 mls/hr IV ONETIME ONE Stop: 07/10/16 14:52 Last Admin: 07/10/16 15:08 Dose: Not Given Levofloxacin/Dextrose 500 mg/ (Premix) 100 mls @ 100 mls/hr IV Q24H [facility] Ketorolac Tromethamine (Toradol) 30 mg IVPUSH ONETIME ONE Stop: 07/10/16 13:40 Last Admin: 07/10/16 13:48 Dose: 30 mg Lorazepam (Ativan) 0.5 mg IVPUSH ONETIME ONE Stop: 07/10/16 13:40 Last Admin: 07/10/16 13:47 Dose: 0.5 mg Methylprednisolone Sodium Succinate (Solu-Medrol) 125 mg IVPUSH ONETIME ONE Stop: 07/10/16 12:54 Last Admin: 07/10/16 13:21 Dose: 125 mg Potassium Chloride (Klor-Con 10) 20 meq PO ONETIME ONE Stop: 07/11/16 09:16 - Exam Quality Assessment: Denies: supplemental oxygen General: Reports: alert, oriented Neck: Reports: supple Lungs: Reports: Normal respiratory effort, Rales (right sided). Denies: Wheezing Cardiovascular: Reports: Regular Rate, Regular Rhythm Abdomen: Reports: bowel sounds present, soft, no tenderness, no distension Extremities: Reports: no edema, normal pulses Skin: Reports: warm, dry, intact Psy/Mental Status: Reports: alert, normal affect, normal mood *Q Meaningful Use (DIS) - VTE *Q VTE Criteria *Q: - Stroke *Q Stroke Criteria *Q: - AMI *Q AMI Criteria *Q:
[2016-07-11] MEDS: CILOSTAZOL 100 MG PO SCH (09:51)
--- NOTE | 2016-08-02 14:37 | EKG ---
07/10/2016 - RONI BLACKMAN - EKG per my reading from 07/10/2016, shows sinus rhythm, with no acute ST changes. [facility] /[id number]
== END 2016-07-11 10:35 | disposition home or self-care (01) | DRG 190 ==
LOC: DL.ED 12:22 → UNDOADMIN 14:16 → DL.MS 14:16
PROVIDERS: ADMIT Internal Medicine; ATTEND Internal Medicine
DX: J44.0 Chronic obstructive pulmonary disease with (acute) lower respiratory infection (principal); J18.9 Pneumonia, unspecified organism; F41.9 Anxiety disorder, unspecified; R51 Headache; J44.1 Chronic obstructive pulmonary disease with (acute) exacerbation; I10 Essential (primary) hypertension; F41.8 Other specified anxiety disorders; Z79.82 Long term (current) use of aspirin; Z79.52 Long term (current) use of systemic steroids; I25.10 Atherosclerotic heart disease of native coronary artery without angina pectoris; E78.00 Pure hypercholesterolemia, unspecified; Z87.891 Personal history of nicotine dependence
CPT/HCPCS: 36415; 71020; 80053; 83605; 83880; 84484; 85025; 85379; 87040 ×2; 87070; 87205; 93005; 93010; 94640; 96361; 96374; 96375; 99285; J1885; J1956; J2060; J2930; J7030; J7050; 80048; 81001; 99284; A9270-GY; J1644; J2920